=== PATIENT | female | born 1950 | race Caucasian/White ===

== ENCOUNTER 2017-01-24 13:33 | Day surgery (SDC) | payer MEDICARE, OTHER ==
[~2017-01-24] VITALS: Ht 165.1 cm; Wt 77.7 kg
[2017-01-24 13:55] VITALS: BP 128/77; PULSE 84; TEMP 97.2
[2017-01-24 15:12] VITALS: BP 99/49; PULSE 83; TEMP 99.3
[2017-01-24 15:27] VITALS: BP 91/60; PULSE 76
[2017-01-24 15:42] VITALS: BP 99/48; PULSE 70
[2017-01-24 17:39] VITALS: BP 98/55; PULSE 66
== END 2017-01-24 16:05 | disposition home or self-care (01) ==
LOC: SDCO 13:33
DX: Z12.31 Encounter for screening mammogram for malignant neoplasm of breast (principal); K64.8 Other hemorrhoids; K57.30 Diverticulosis of large intestine without perforation or abscess without bleeding; M85.80 Other specified disorders of bone density and structure, unspecified site
CPT/HCPCS: OP; J2250; J3010; J7030

== ENCOUNTER → 2017-01-25 | Outpatient (CLI) | payer MEDICARE, OTHER | LOC: MC.RAD 14:25 | DX: Z12.31 Encounter for screening mammogram for malignant neoplasm of breast (principal) ==

== ENCOUNTER → 2018-01-11 | Outpatient (CLI) | payer MEDICARE, OTHER | LOC: MC.RAD 10:54 | DX: N63.20 Unspecified lump in the left breast, unspecified quadrant (principal) ==

== ENCOUNTER → 2020-08-28 | Outpatient (CLI) | payer MEDICARE | LOC: MC.RAD 11:23 | DX: Z12.31 Encounter for screening mammogram for malignant neoplasm of breast (principal) ==

== ENCOUNTER → 2021-12-06 | Outpatient (CLI) | payer MEDICARE | LOC: MC.RAD 09:53 | DX: Z12.31 Encounter for screening mammogram for malignant neoplasm of breast (principal) ==

== ENCOUNTER → 2024-06-27 | Outpatient (CLI) | payer MEDICARE | LOC: MC.RAD 13:00 | DX: Z12.31 Encounter for screening mammogram for malignant neoplasm of breast (principal) ==